=== PATIENT | male | born 1980 | race Two or more races ===

== ENCOUNTER 2021-02-18 08:08 | Emergency (ER) | payer MEDICAID ==
[~2021-02-18] VITALS: Ht 177.8 cm; Wt 81.0 kg
[2021-02-18 08:10] VITALS: BP 126/87
== END 2021-02-18 09:17 | disposition home or self-care (01) ==
LOC: ER 08:14
DX: J06.9 Acute upper respiratory infection, unspecified (principal); Z20.822 Contact with and (suspected) exposure to COVID-19
CPT/HCPCS: 87426; 99283

== ENCOUNTER 2021-03-12 01:55 | Emergency (ER) | payer MEDICAID ==
[~2021-03-12] VITALS: Ht 175.3 cm; Wt 82.0 kg
[2021-03-12] MEDS ORDERED: ACETAMINOPHEN WITH CODEINE 300/30MG TABLET PO ONE (05:45)
[2021-03-12 06:29] VITALS: BP 122/92
[2021-03-12] MEDS ORDERED: IBUP-2028 PO (06:58)
== END 2021-03-12 07:20 | disposition home or self-care (01) ==
LOC: ER 01:55
DX: M79.18 Myalgia, other site (principal); M54.5 Low back pain
CPT/HCPCS: 99285

== ENCOUNTER 2022-01-05 16:43 | Emergency (ER) | payer MEDICAID, OTHER ==
[~2022-01-05] VITALS: Ht 172.7 cm; Wt 82.0 kg
[~2022-01-05 16:43] MED LIST: IBUP-2028 PO
[2022-01-05] MEDS ORDERED: IBUPROFEN 600MG TABLET PO ONE (18:00)
[2022-01-05] MEDS ORDERED: KETOROLAC 60MG/2ML VIAL IM ONE (18:15)
[2022-01-05 20:00] VITALS: BP 118/57
[2022-01-05 20:27] LABS: CLARITY URINE CLEAR (CLEAR); COLOR URINE YELLOW (YELLOW); KETONES URINE TRACE (NEGATIVE); LEUKOCYTE ESTERASE URINE NEGATIVE (NEGATIVE); NITRITE URINE NEGATIVE (NEGATIVE); OCCULT BLOOD URINE NEGATIVE (NEGATIVE); PROTEIN URINE TRACE (NEGATIVE); SPECIFIC GRAVITY URINE 1.031 (1.005-1.030)
[2022-01-05] MEDS ORDERED: TOPUD PO (20:46)
== END 2022-01-05 20:00 | disposition home or self-care (01) ==
LOC: ER 16:43
DX: R10.32 Left lower quadrant pain (principal)
CPT/HCPCS: 81003; 96372; 99283; J1885